=== PATIENT | female | born 2000 | race Caucasian/White ===

== ENCOUNTER 2019-01-30 16:33 | Emergency (ER) | payer MEDICAID ==
--- NOTE | 2019-01-30 16:57 | ER Document Report ---
ED Medical Screen (RME) - General Chief Complaint: Leg Pain Stated Complaint: LEFT LEG PAIN Time Seen by Provider: 01/30/19 16:53 Mode of Arrival: Ambulatory Information source: Patient TRAVEL OUTSIDE OF THE [place] IN LAST 30 DAYS: No - HPI Patient complains to provider of: L leg pain Onset: This morning - pt with h/o L leg pain, swelling, redness (calf) - Related Data Allergies/Adverse Reactions: No Known Allergies Allergy (Verified 01/30/19 16:48) Physical Exam - Vital signs Vitals: Temp Pulse Resp BP Pulse Ox 99.2 F 107 H 18 134/74 H 99 01/30/19 16:37 01/30/19 16:37 01/30/19 16:37 01/30/19 16:37 01/30/19 16:37 Course - Vital Signs Vital signs: Temp Pulse Resp BP Pulse Ox 99.2 F 107 H 18 134/74 H 99 01/30/19 16:37 01/30/19 16:37 01/30/19 16:37 01/30/19 16:37 01/30/19 16:37
--- NOTE | 2019-01-30 19:22 | ER Document Report ---
ED General - General Chief Complaint: Leg Pain Stated Complaint: LEFT LEG PAIN Time Seen by Provider: 01/30/19 16:53 Mode of Arrival: Ambulatory Information source: Patient TRAVEL OUTSIDE OF THE [place] IN LAST 30 DAYS: No - HPI Patient complains to provider of: Left calf pain and swelling-atraumatic Onset: Just prior to arrival Onset/Duration: Sudden Quality of pain: Sharp Severity: Moderate Pain Level: 3 Associated symptoms: denies: Shortness of breath Exacerbated by: Denies Relieved by: Denies Similar symptoms previously: No Recently seen / treated by doctor: No Notes: Patient is a 18-year-old female coming in today with onset of sharp throbbing left calf pain this afternoon. She actually has a history of factor V Leiden. Surprisingly, no history of blood clots in the deep veins or lungs. She is not on anticoagulation at this time. Patient is also asking for migraine medication. No formal history of migraines but has had a bad headache off and on for the past 2 weeks. - Related Data Allergies/Adverse Reactions: No Known Allergies Allergy (Verified 01/30/19 16:48) Past Medical History - General Information source: Patient - Social History Smoking Status: Current Every Day Smoker Family History: Reviewed & Not Pertinent Patient has suicidal ideation: No Patient has homicidal ideation: No Renal/ Medical History: Denies: Hx Peritoneal Dialysis Review of Systems - Review of Systems Notes: Constitutional: No fevers. No chills. EENT: No eye redness. No eye pain. No ear pain. No sore throat. Cardiovascular: No chest pain. No palpitations. Respiratory: No cough. No shortness of breath. No respiratory distress. Gastrointestinal: No abdominal pain. No nausea, vomiting, or diarrhea. Genitourinary: Atraumatic. No lesions. No pain. No discharge. Musculoskeletal: Has a for left calf pain and swelling. Skin: No rash or lesions. Lymphatic: No swollen lymph nodes. Neurologic: No headache. No syncope. Psychiatric: No suicidal or homicidal ideation. Physical Exam - Vital signs Vitals: Temp Pulse Resp BP Pulse Ox 99.2 F 107 H 18 134/74 H 99 01/30/19 16:37 01/30/19 16:37 01/30/19 16:37 01/30/19 16:37 01/30/19 16:37 - Notes Notes: General: Well-developed, well-nourished. In no acute distress. Non-toxic appearing. Cardiac: Well-perfused. Regular rate and rhythm. No murmurs, rubs, or gallops. Pulmonary: No respiratory distress. No cyanosis. Bilateral lung fiels are clear to auscultation. Abdominal: Non-distended. Non-rigid. Bowels sounds are present in all four quadrants. No guarding or rebound. HEENT: Head is atraumatic. Conjunctivae not reddened. No tearing. PERRL. EOMI. Orbits atraumatic. No periorbital swelling or erythema. Oropharynx is without erythema, swelling, or exudates. Neck: Supple. No adenopathy. No meningismus. Dermatologic: Warm with good turgor. No rash. Atraumatic. Chest: Atraumatic. No chest wall tenderness to palpation. Musculoskeletal: Left calf is tender to squeeze. There is moderate swelling of the left calf compared to the right. Slight erythema present. DP pulse is diminished on left versus right. Genitourinary: Examination deferred Neurologic: No gross neurologic deficits. Psychiatric: Normal mood. Course - Re-evaluation Re-evalutation: 01/30/19 19:22 Venous Doppler ultrasound in progress at time of interview. 01/30/19 21:05 Wet reading on the left lower extremity venous Doppler is negative. Fioricet given here for headache. Will discharge home with Fioricet - Vital Signs Vital signs: Temp Pulse Resp BP Pulse Ox 99.2 F 107 H 18 134/74 H 99 01/30/19 16:37 01/30/19 16:37 01/30/19 16:37 01/30/19 16:37 01/30/19 16:37 Discharge - Discharge Clinical Impression: Leg pain Qualifiers: Laterality: left Qualified Code(s): M79.605 - Pain in left leg Headache Qualifiers: Headache type: other headache syndrome Qualified Code(s): G44.89 - Other headache syndrome Condition: Good Disposition: HOME, SELF-CARE Instructions: Leg Cramps ([facility]), Headache ([facility]) Additional Instructions: You need to quit smoking. With your factor V Leiden, you are at an extremely high risk for getting a blood clot. Your smoking makes that exponentially higher. Prescriptions: Butalb/Acetaminophen/Caffeine [Fioricet 50-300-40 mg Capsule] 1 cap PO Q6HP PRN #12 cap PRN Reason: Naproxen 500 mg PO BID 5 Days #10 tablet Forms: Smoking Cessation Education Referrals: OLIVERIO CORONEL [Primary Care Provider] - Follow up as needed [facility] [Provider Group] - Follow up in 3-5 days
[2019-01-30] MEDS ORDERED: BUTALB/ACETAMINOPHEN/CAFFEINE 1 TAB EACH PO ONE (21:05)
[2019-01-30 21:23] VITALS: BP 120/94
--- NOTE | 2019-01-31 09:59 | XCELERA REPORT ---
[address] [facility] [id number] Lower Extremity Venous Evaluation Procedure: Color flow and duplex imaging of the veins of the left lower extremity as well as the right Common Femoral vein. Right Sided Venous Evaluation The right common femoral vein is fully compressible. Spontaneous and phasic flow is present in the right common femoral vein. Left Sided Venous Evaluation Normal vessel filling wall to wall, compression and augmentation as well as Colour flow down to the infrageniculate veins. Interpretation Summary No duplex evidence of DVT or obstruction in the left lower extremity nor in the right Common Femoral vein. Name: LALA FRANCO Age: 18 yrs Gender: Female : 2000 Patient Status: Emergency Patient Location: ER Study Date: 01/30/2019 07:19 PM Reason For Study: L calf pain Ordering Physician: ROMELIA PRICE Performed By: Addy Hurt : ROMELIA PRICE > Pankaj Jeronimo
== END 2019-01-30 21:27 | disposition home or self-care (01) ==
LOC: ER 16:33
DX: M79.662 Pain in left lower leg (principal); M79.89 Other specified soft tissue disorders; L53.9 Erythematous condition, unspecified; G44.89 Other headache syndrome; D68.51 Activated protein C resistance; F17.200 Nicotine dependence, unspecified, uncomplicated
CPT/HCPCS: 99283; 93971 ×2; J3490